=== PATIENT | male | born 1990 | race Caucasian/White ===

== ENCOUNTER 2018-09-12 13:43 | Emergency (ER) | payer MEDICAID ==
[~2018-09-12] VITALS: Ht 167.6 cm; Wt 63.6 kg
[2018-09-12 14:02] VITALS: Ht 167.6 cm; Wt 63.6 kg
[2018-09-12] MEDS ORDERED: ZYPREXA20 MG PO (14:03)
[2018-09-12] MEDS ORDERED: TRAZODONE HCL150 MG PO (14:04)
[2018-09-12] MEDS ORDERED: ZOLOFT100 MG PO (14:04)
[2018-09-12] MEDS ORDERED: BENZTROPINE MESY1 MG PO (14:04)
[2018-09-12 14:33] LABS: BASOPHILS 0.2 % (0-2); EOSINOPHILS 0.7 % (0-7); HEMATOCRIT 54.3 % (42.0-54.0); HEMOGLOBIN 19.6 g/dL (13.5-17.5); IMMATURE GRANULOCYTES 0.5 % (0-5); LYMPHOCYTES 25.1 % (15-50); MCH 34.4 pg (26.0-34.0); MCHC 36.1 g/dL (31.0-37.0); MCV 95.4 fL (80.0-100.0); MEAN PLATELET VOLUME 10.3 fL (7.4-10.4); NEUTROPHILS 66.5 % (40-80); PLATELET COUNT 228 10x3/uL (130-400); RBC 5.69 10x6/uL (4.20-6.10); RDW 14.1 % (11.5-14.5)
[2018-09-12 14:36] LABS: APPEARANCE CLEAR (CLEAR); BILIRUBIN 2+ (NEGATIVE); COLOR YELLOW (YELLOW); GLUCOSE NEGATIVE (NEGATIVE); KETONE NEGATIVE (NEGATIVE); NITRITE NEGATIVE (NEGATIVE); PROTEIN TRACE mg/dL (NEGATIVE); SPECIFIC GRAVITY 1.015 (1.005-1.020); UROBILINOGEN NORMAL (NORMAL)
[2018-09-12 14:37] LABS: BACTERIA FEW /hpf (NONE SEEN); EPITHELIAL CELLS OCC /hpf (0-5); RED CELLS - URINE 0-5 /hpf (0-5); WHITE CELLS - URINE OCC /hpf (0-5)
[2018-09-12 15:03] LABS: ALBUMIN 4.5 g/dL (3.4-5.0); ALKALINE PHOSPHATASE 82 U/L (46-116); ALT (SGPT) 18 U/L (10-68); AMYLASE - SERUM 58 U/L (25-115); CALC OSMOLALITY 275 mosm/kg (275-300); CALCIUM 10.3 mg/dL (8.5-10.1); CHLORIDE - SERUM 100 mmol/L (98-107); CREATINE KINASE 79 UL (21-232); CREATININE - SERUM 1.2 mg/dL (0.6-1.3); GLUCOSE 87 mg/dL (74-106); LIPASE 152 U/L (73-393); POTASSIUM - SERUM 4.8 mmol/L (3.5-5.1); PROTEIN - SERUM 8.9 g/dL (6.4-8.2); SODIUM 139 mmol/L (136-145); UREA NITROGEN 9 mg/dL (7-18); eGFR NON AFRICAN AMERICAN 76 mL/min (90-120)
[2018-09-12 15:05] LABS: TROPONIN-I < 0.017 ng/mL (0.000-0.060)
[2018-09-12] MEDS ORDERED: ZOFRAN4 MG PO (16:26)
[2018-09-12] MEDS ORDERED: PROTONIX40 MG PO (16:26)
[2018-09-12 17:00] VITALS: BP 133/86
== END 2018-09-12 17:07 | disposition home or self-care (01) ==
LOC: D.ER 13:43
PROVIDERS: Family Medicine
DX: K29.70 Gastritis, unspecified, without bleeding (principal); R11.10 Vomiting, unspecified; R19.7 Diarrhea, unspecified; R10.84 Generalized abdominal pain; F17.200 Nicotine dependence, unspecified, uncomplicated; Z86.59 Personal history of other mental and behavioral disorders